=== PATIENT | male | born 1990 | race Caucasian/White ===

== ENCOUNTER 2017-06-17 18:40 | Emergency (ER) | payer SELFPAY ==
[~2017-06-17] VITALS: Ht 185.4 cm; Wt 66.0 kg
[2017-06-17 18:42] VITALS: BP 118/70; PULSE 76; RESP 16; TEMP 98; O2SAT 98
[2017-06-17] MEDS ORDERED: LIDOCAINE 1%/EPINEPHrine 1:100,000 SOLN 20 ML VIAL INFIL ONE (19:00)
[2017-06-17] MEDS ORDERED: ONDANSETRON ODT 4 MG TAB PO ONE (19:30)
--- NOTE | 2017-06-17 19:32 | PD ---
HPI Chief Complaint: Skin Problem Time Seen by Provider: 18:57 Travel History International Travel<30 days: No Contact w/Intl Traveler<30days: No Traveled to known affect area: No History of Present Illness HPI This is a 27-year-old male here with an abscess to left side of his face 1 week. He reports the area spontaneously drained several weeks ago. Over the past week it has increased in size and become increasingly more tender. No fever chills. Symptom severity is mild to moderate. No aggravating or alleviating factors. PFSH Past Medical History Hx Anticoagulant Therapy: No Diabetes: No Social History Tobacco Use: No Allergies-Medications (Allergen,Severity, Reaction): Coded Allergies: penicillin G (Verified Allergy, Severe, 06/17/17) Review of Systems Except as stated in HPI: all other systems reviewed are Neg General / Constitutional: No: Fever Eyes: No: Visual changes HENT: No: Headaches Cardiovascular: No: Chest Pain or Discomfort Respiratory: No: Shortness of Breath Gastrointestinal: No: Abdominal Pain Genitourinary: No: Dysuria Physical Exam Narrative GENERAL: Alert and well-appearing 27-year-old male SKIN: Warm and dry. 2 x 1 cm fluctuant abscess near the tragus of the left ear. There is no surrounding cellulitis. No drainage from the site. HEAD: Normocephalic. EYES: No scleral icterus. No injection or drainage. NECK: Supple, trachea midline. No lymphadenopathy. CARDIOVASCULAR: Regular rate and rhythm RESPIRATORY: Breath sounds equal bilaterally. No accessory muscle use. GASTROINTESTINAL: Abdomen soft, non-tender, nondistended. MUSCULOSKELETAL: No cyanosis, or edema. Data Data Last Documented VS Vital Signs Date Time Temp Pulse Resp B/P (MAP) Pulse Ox O2 Delivery O2 Flow Rate FiO2 06/17/17 18:42 98.0 76 16 118/70 (86) 98 Orders Orders Lidocai-Epi 1%-1:100,000 Inj (Xylocaine- (06/17/17 19:00) Ondansetron Odt (Zofran Odt) (06/17/17 19:30) MDM Medical Decision Making Medical Screen Exam Complete: Yes Emergency Medical Condition: Yes Differential Diagnosis Abscess, inflamed sebaceous cyst, facial cellulitis Narrative Course 27-year-old male with an abscess near the left ear. Risk/benefits of procedure discussed at length with patient. He accepts risks and is requesting that an open the area with incision and drainage as he does not have health insurance and unable to follow-up on outpatient basis for somebody else to do it. Incision and drainage was performed. Patient tolerated procedure well. There was no facial nerve palsy post procedure. He will be discharged home on Bactrim. Procedures Procedure Narrative INCISION AND DRAINAGE OF ABSCESS: The area was prepped and was sterilely draped. A subcutaneous wheal of 1 % Xylocaine with a total number [-1] mL was used to anesthetize the area properly. A number 11 scalpel was used to make a 3 -mm incision across the area of the abscess. The abscess was drained and irrigated with normal saline. Sterile dressing applied. Diagnosis Primary Impression: Facial abscess Referrals: Primary Care Physician Additional Instructions: Antibiotics as directed. Return to emergency department if he develop new or worsening symptoms. Scripts Sulfamethoxazole-Trimethoprim (Bactrim DS) 800-160 Mg Tab 1 TAB PO BID for Infection, #20 TAB 0 Refills Prov: Eleanor Paul 06/17/17 Disposition: 01 DISCHARGE HOME Condition: Stable Eleanor Paul June 17, 2017 19:32
[2017-06-17] MEDS ORDERED: BACT800T5 PO (19:34)
== END 2017-06-17 19:47 | disposition home or self-care (01) ==
LOC: PHEFT 18:40
DX: L02.01 Cutaneous abscess of face (principal)
CPT/HCPCS: 10060